=== PATIENT | male | born 1965 | race Caucasian/White ===

== ENCOUNTER 2021-06-08 05:50 | Inpatient (IN) ==
[2021-06-08] MEDS ORDERED: Buffered Lidocaine 1% SYRIN 1 ml INTRADERM ONE (06:00)
[2021-06-08] MEDS ORDERED: Lactated Ringers 1000 ml BAG 1,000 ML IV SCH (06:00)
[2021-06-08] MEDS ORDERED: Famotidine IV 10 MG/ML 2 ml VIAL (20 mg) IV ONE (06:00)
[2021-06-08] MEDS ORDERED: ceFAZolin 2 GM PREMIX 2 GM/50 ML BAG ONE (06:29)
[2021-06-08] MEDS ORDERED: Famotidine IV 10 MG/ML 2 ml VIAL (20 mg) ONE (06:29)
[2021-06-08] MEDS ORDERED: Ropivacaine 5 MG/ML 20 ML VIAL 0.5% (100 MG) ONE (06:50)
[2021-06-08] MEDS ORDERED: Succinylcholine 200 mg VIAL 20 mg/ml 10 ml VIAL (200 mg) ONE (07:08)
[2021-06-08] MEDS ORDERED: Propofol 10 MG/ML 20 ML BTL ONE ×3 (07:08→11:10)
[2021-06-08] MEDS ORDERED: Lidocaine 2% PF 5 ML VIAL ONE ×2 (07:09→07:13)
[2021-06-08] MEDS ORDERED: ROPIVACAINE 5 MG/ML 30 ML BTL (0.5%) ONE (07:13)
[2021-06-08] MEDS ORDERED: Ropivacaine 0.2% 2 MG/ML VIAL ONE (07:13)
[2021-06-08] MEDS ORDERED: Midazolam 5 mg/5 ml VIAL 1 mg/ml 5 ml VIAL (5 mg) ONE (07:13)
[2021-06-08] MEDS ORDERED: fentaNYL 100 mcg/2 ml 50 MCG/ML VIAL ONE (07:13)
[2021-06-08] MEDS ORDERED: Rocuronium 50 mg VIAL 10 mg/ml 5 ml VIAL (50 mg) ONE (07:15)
[2021-06-08] MEDS ORDERED: Bupivacaine 0.5% SDV PF 30ML VIAL ONE (07:59)
[2021-06-08] MEDS ORDERED: Morphine 2 MG/ML SYRINGE IV PRN (08:48)
[2021-06-08] MEDS ORDERED: diPHENhydraMINE IV 50 MG/ML 1 ml VIAL (BENADRYL) IV PRN (08:48)
[2021-06-08] MEDS ORDERED: Ondansetron ODT 4 mg TAB 4 MG TAB PO PRN (08:48)
[2021-06-08] MEDS ORDERED: diPHENhydraMINE 25 mg TAB PO PRN (08:48)
[2021-06-08] MEDS ORDERED: Magnesium Hydroxide LIQ 30 ML UDC PO PRN (08:48)
[2021-06-08] MEDS ORDERED: Lactulose 30 ml UDC PO PRN (08:48)
[2021-06-08] MEDS ORDERED: Dexmedetomidine 200 mcg/2 ml 2 ml VIAL (200 mcg) ONE ×2 (08:49→10:23)
[2021-06-08] MEDS ORDERED: ceFAZolin VIAL VIAL ONE (10:42)
[2021-06-08] MEDS ORDERED: fentaNYL 100 mcg/2 ml 50 MCG/ML VIAL IV PRN (11:54)
[2021-06-08] MEDS ORDERED: Ondansetron 4 mg VIAL 2 MG/ML 2 ml VIAL IV PRN (11:54)
[2021-06-08] MEDS ORDERED: Naloxone 0.4 mg VIAL 0.4 mg/ml 1 ml VIAL IV PRN (11:54)
[2021-06-08] MEDS ORDERED: HYDROmorphone 1 MG/1 ML SYRINGE IV PRN (11:54)
[2021-06-08] MEDS ORDERED: Ondansetron 4 mg VIAL 2 MG/ML 2 ml VIAL ONE (13:33)
[2021-06-08] MEDS ORDERED: DiMENhydriNATE IV 50 mg/ml 1 ml VIAL ONE (13:53)
[2021-06-08] MEDS ORDERED: DiMENhydriNATE IV 50 mg/ml 1 ml VIAL IV PUSH PRN (13:55)
[2021-06-08] MEDS: Lactated Ringers 1000 ml BAG 1,000 ML IV SCH (15:12)
[2021-06-08] MEDS: Magnesium Hydroxide LIQ 30 ML UDC PO SCH ×2 (15:49→20:34)
[2021-06-08] MEDS: Vitamin THERAPEUTIC TAB PO SCH (15:49)
[2021-06-08] MEDS: ceFAZolin 1 GM ADVAN 1 GM in NS 0.9% 50 ML 50 ML IVPB SCH (16:15)
[2021-06-09] MEDS: ceFAZolin 1 GM ADVAN 1 GM in NS 0.9% 50 ML 50 ML IVPB SCH ×2 (00:30→08:17)
[2021-06-09] MEDS: Lactated Ringers 1000 ml BAG 1,000 ML IV SCH (01:50)
[2021-06-09] MEDS: Ondansetron 4 mg VIAL 2 MG/ML 2 ml VIAL IV PRN ×2 (02:56→09:54)
[2021-06-09 06:17] LABS: Hematocrit 33 % (42-52); Hemoglobin 11.8 g/dL (14.0-18.0); Mean Platelet Volume 7.3 fL (7.4-10.4); Platelet Count 210 10^3/uL (150-450)
[2021-06-09 06:33] LABS: Calcium 8.5 mg/dL (8.6-10.3); eGFR CKD-EPI 82.4 (>60)
[2021-06-09] MEDS: Magnesium Hydroxide LIQ 30 ML UDC PO SCH ×2 (09:50→22:56)
[2021-06-09] MEDS: Vitamin THERAPEUTIC TAB PO SCH (09:50)
[2021-06-10 07:01] LABS: Hematocrit 31 % (42-52); Hemoglobin 10.6 g/dL (14.0-18.0); Mean Platelet Volume 7.3 fL (7.4-10.4); Platelet Count 197 10^3/uL (150-450)
[2021-06-10] MEDS: Vitamin THERAPEUTIC TAB PO SCH (07:46)
[2021-06-10] MEDS: Magnesium Hydroxide LIQ 30 ML UDC PO SCH (07:49)
[2021-06-10 11:09] VITALS: BP 116/65
[2021-06-11] MEDS ORDERED: Scopolamine PATCH Remove NOTE PATCH OFF ONE (13:56)
== END 2021-06-10 13:30 | disposition home or self-care (01) | DRG 302 ==
LOC: INTOOBSV 05:50 → AA 05:50 → SSU 14:53
PROVIDERS: ADMIT Orthopaedic Surgery Adult Reconstructive Orthopaedic Surgery; ATTEND Orthopaedic Surgery Adult Reconstructive Orthopaedic Surgery